=== PATIENT | female | born 1995 | race Caucasian/White ===

== ENCOUNTER 2022-05-21 20:22 | Outpatient (CLI) | payer OTHER ==
--- NOTE | 2022-05-22 15:08 | Ultrasound Report ---
PROCEDURE: Pelvic w/Transvaginal INDICATIONS: OVARIAN CYST TECHNIQUE: Real-time scanning was performed of the pelvic organs, with image documentation. Additional endovagi nal scanning was necessary due to incomplete visualization of the adnexal and endometrial structures by transabdominal scanning. COMPARISON: None. FINDINGS: Uterus: Uterus is anteverted/anteflexed and normal in size at 8.4 x 4.8 x 4.8 cm. The myometrium is homogeneous. The endometrium measures 5.8 mm in combined thickness. There is an IUD in uterine cav ity. Ovaries: The right ovary measures 3.6 x 2.4 x 2.8 cm, with a calculated ovarian volume of 12.4 cc. The left ovary measures 3.5 x 2.4 x 3.2 cm, with a calculated ovarian volume of 12.7 cc. The ovaries have a normal sonographic appearance. Less than 12 follicles can be seen in each ovary. No adnexal masses are seen. Other: No pathologic free abdominal or pelvic fluid. IMPRESSION: 1. Normal ultrasound appearance of uterus with an IUD in expected position. 2. No ovarian cyst seen on the current exam. Reviewed by: Angie Caceres MD on 05/22/2022 3:07 PM PST Approved by: Angie Caceres MD on 05/22/2022 3:07 PM PST Station ID: [id number]
== END 2022-05-21 20:23 | disposition home or self-care (01) ==
LOC: DI 20:22
PROVIDERS: ATTEND Obstetrics & Gynecology
DX: N83.201 Unspecified ovarian cyst, right side (principal); Z97.5 Presence of (intrauterine) contraceptive device